=== PATIENT | male | born 1970 | race African-American/Black ===

== ENCOUNTER 2021-04-06 15:58 | Emergency (ER) | payer OTHER ==
[2021-04-06] MEDS ORDERED: oxyCODONE /ACETAMINOPHEN 5-325MG TAB PO ONE (18:40)
--- NOTE | 2021-04-06 19:01 | Emergency Department Report ---
ED Lower Extremity HPI - General Chief Complaint: Extremity Injury, Lower Stated Complaint: ANKLE INJURY Time Seen by Provider: 04/06/21 18:40 Source: patient, family Mode of arrival: Wheelchair Limitations: Language Barrier - History of Present Illness Initial Comments: 51-year-old male presents emerge department planing of foot pain swelling and worsened with palpation ambulation after trip and fall on some steps about 10 days ago Complaint: foot injury -: Sudden, days(s) (10) Injury: Ankle: Left, Foot: Left Type of Injury: inversion Place: home Severity: mild, moderate Improves With: nothing Worsens With: weight bearing, movement, palpation Context: fall Associated Symptoms: swelling, numbness, unable to bear weight - Related Data Previous Rx's Medication Instructions Recorded Last Taken Type Acetaminophen/Codeine [Tylenol 1 tab PO Q6H #20 tab 04/06/21 Unknown Rx /Codeine # 3 tab] Allergies Allergy/AdvReac Type Severity Reaction Status Date / Time No Known Allergies Allergy Unverified 04/06/21 17:09 ED Review of Systems ROS: Stated complaint: ANKLE INJURY Other details as noted in HPI Comment: All other systems reviewed and negative ED Past Medical Hx - Medications Home Medications: Home Medications Medication Instructions Recorded Confirmed Last Taken Type Acetaminophen/Codeine [Tylenol 1 tab PO Q6H #20 tab 04/06/21 Unknown Rx /Codeine # 3 tab] ED Physical Exam - General Limitations: Language Barrier General appearance: alert, in no apparent distress - Head Head exam: Present: atraumatic, normocephalic - Eye Eye exam: Present: normal appearance, PERRL, EOMI Pupils: Present: normal accommodation - ENT ENT exam: Present: normal exam, normal orophraynx, mucous membranes moist, TM's normal bilaterally - Neck Neck exam: Present: normal inspection, full ROM - Respiratory Respiratory exam: Present: normal lung sounds bilaterally. Absent: respiratory distress, wheezes, rales, chest wall tenderness, accessory muscle use - Cardiovascular Cardiovascular Exam: Present: regular rate, normal rhythm. Absent: systolic murmur, diastolic murmur, rubs, gallop - GI/Abdominal GI/Abdominal exam: Present: soft, normal bowel sounds - Rectal Rectal exam: Present: deferred - Extremities Exam Extremities exam: Present: normal inspection, tenderness, normal capillary refill - Expanded Lower Extremity Exam Left Ankle exam: Present: tenderness, swelling, ecchymosis. Absent: full ROM, abrasion, laceration Foot/Toe exam: Present: tenderness, swelling, ecchymosis, calcaneal tenderness Neuro vascular tendon exam: Present: no vascular compromise. Absent: abnormal cap refill, motor deficit Gait: Positive: unable to bear weight - Back Exam Back exam: Present: normal inspection. Absent: CVA tenderness (R), CVA tenderness (L) - Neurological Exam Neurological exam: Present: alert, oriented X3, CN II-XII intact, normal gait - Psychiatric Psychiatric exam: Present: normal affect, normal mood - Skin Skin exam: Present: warm, dry, intact, normal color. Absent: rash ED Course Vital Signs 04/06/21 04/06/21 17:12 19:34 Temperature 98.7 F Pulse Rate 84 Respiratory 18 14 Rate Blood Pressure 121/85 [Right] O2 Sat by Pulse 100 Oximetry - Orthopedic Splinting/Casting Injury #1 Side: left Lower Extremity Injury Location: ankle, foot Lower Extremity Immobilizer: posterior splint Other Orthopedic Equipment: crutches ED Lower Extremity MDM - Radiology Data Radiology results: report reviewed [facility] [address] [place] [address] XRay Report Signed Patient: RAQUEL PARR MR#: [id number] : 1970 Acct:[id number] Age/Sex: 51 / M ADM Date: 04/06/21 Loc: ED Attending Dr: Ordering Physician: TIO MOY Date of Service: 04/06/21 Procedure(s): XR foot 3+V LT Accession Number(s): [id number] cc: TIO MOY Fluoro Time In Minutes: LEFT FOOT 3 VIEWS. INDICATION / CLINICAL INFORMATION: trip and fall steps.ankle pain and swelling COMPARISON: Left ankle same date. FINDINGS: BONES / JOINT(S): Comminuted displaced fracture of the os calcaneus again demonstrated. Spiral fracture of the lower fibula redemonstrated. Fracture thought to involve the distal third metatarsal better visualized on comparison study. No significant arthritis. SOFT TISSUES: Moderate soft tissue swelling. ADDITIONAL FINDINGS: None. IMPRESSION: 1. Redemonstrated fractures of the os calcaneus, distal fibula, and possibly the distal third metatarsal. Signer Name: Louisa Edward II, MD Signed: 04/06/2021 7:20 PM Workstation Name: [id number] Transcribed By: ANGELIQUE Dictated By: LOUISA EDWARD II, MD Electronically Authenticated By: LOUISA EDWARD II, MD Signed Date/Time: 04/06/211919 DD/ 18 TD/TT: Critical care attestation.: If time is entered above; I have spent that time in minutes in the direct care of this critically ill patient, excluding procedure time. ED Disposition Clinical Impression: Ankle fracture, Foot fracture, right Disposition: 01 HOME / SELF CARE / HOMELESS Is pt being admited?: No Does the pt Need Aspirin: No Condition: Stable Instructions: Nondisplaced Fibular Ankle Fracture Treated With Immobilization, Adult, Cast or Splint Care, Adult, Ankle Fracture Prescriptions: Acetaminophen/Codeine [Tylenol /Codeine # 3 tab] 1 tab PO Q6H #20 tab Referrals: PRIMARY MD SONIA [Primary Care Provider] - 3-5 Days PÉREZ KANG MD [Staff Physician] - 3-5 Days
--- NOTE | 2021-04-06 19:23 | XRay Report ---
LEFT ANKLE 4 VIEW(S) INDICATION / CLINICAL INFORMATION: fall. foot pain and swelling COMPARISON: None available. FINDINGS: BONES / JOINT(S): Acute minimally displaced spiral fracture lower left fibula at and just above the l evel of the tibial plafond and agree no obvious widening of the ankle mortise. Additionally on the la teral image of the ankle there is a comminuted moderately displaced fracture of the os calcaneus. Fra cture distal third metatarsal demonstrated. No significant arthritis. SOFT TISSUES: Moderate soft tissue swelling is present in the region of fractures. ADDITIONAL FINDINGS: None. IMPRESSION: Fractures involving the distal left fibula, os calcaneus, and distal third metatarsal is present as d etailed. Signer Name: Emeka Sousa II, MD Signed: 04/06/2021 7:18 PM Workstation Name: [id number]
--- NOTE | 2021-04-06 19:25 | XRay Report ---
LEFT FOOT 3 VIEWS. INDICATION / CLINICAL INFORMATION: trip and fall steps.ankle pain and swelling COMPARISON: Left ankle same date. FINDINGS: BONES / JOINT(S): Comminuted displaced fracture of the os calcaneus again demonstrated. Spiral fractu re of the lower fibula redemonstrated. Fracture thought to involve the distal third metatarsal better visualized on comparison study. No significant arthritis. SOFT TISSUES: Moderate soft tissue swelling. ADDITIONAL FINDINGS: None. IMPRESSION: 1. Redemonstrated fractures of the os calcaneus, distal fibula, and possibly the distal third metatar julieta. Signer Name: Emeka Sousa II, MD Signed: 04/06/2021 7:20 PM Workstation Name: [id number]
[2021-04-06 22:12] VITALS: BP 136/82
== END 2021-04-06 22:11 | disposition home or self-care (01) ==
LOC: ED 15:58
DX: S82.892A Other fracture of left lower leg, initial encounter for closed fracture (principal); S92.901A Unspecified fracture of right foot, initial encounter for closed fracture; W10.8XXA Fall (on) (from) other stairs and steps, initial encounter; Y93.89 Activity, other specified; Y92.89 Other specified places as the place of occurrence of the external cause; Y99.8 Other external cause status
CPT/HCPCS: 99283; 99284